=== PATIENT | female | born 1980 | race African-American/Black ===

== ENCOUNTER 2020-01-01 03:29 | Emergency (ER) | payer MEDICARE, OTHER ==
[~2020-01-01] VITALS: Ht 177.8 cm; Wt 146.1 kg
[2020-01-01 03:40] VITALS: BP 154/98
--- NOTE | 2020-01-01 03:40 | NUR ---
ED Nurse Note: Patient walked into ED for c/o anxiety. Patient states she was diagnosed with anxiety three years ago and used to take valium. She states it has become increasingly worse over the past year since the of her fiance. She is requesting to be evaluated. Denies wanting to harm herself or others. She denies any pain, SOB or other complaints besides the anxiety. Patient is aaox4, breathing is normal and unlabored.
[2020-01-01 04:09] LABS: APPEARANCE,URINE CLEAR; BILIRUBIN, URINE NEGATIVE (NEGATIVE); GLUCOSE, URINE (UA) NEGATIVE (NEGATIVE); KETONES,URINE NEGATIVE (NEGATIVE); LEUKOCYTE ESTERASE ,URINE 1+ (NEGATIVE); NITRITE,URINE NEGATIVE (NEGATIVE); PH,URINE 6 (4.5-8.0); PROTEIN,URINE 1+ (NEGATIVE); UROBILINOGEN,URINE NORMAL MG/DL (0.0-1.0)
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
[2020-01-01] MEDS ORDERED: LORazepam Inj 2mg/ml 1ml IM ONE (04:15)
[2020-01-01 04:16] LABS: COLOR,URINE YELLOW
[2020-01-01] MEDS ORDERED: CEPHALEXIN500 MG ORAL (04:28)
[2020-01-01 04:30] VITALS: BP 140/90
--- NOTE | 2020-01-01 04:30 | NUR ---
ER DISCHARGE NOTE: Patient is cleared to be discharged per ERMD, pt is aox4, on room air, with stable vital signs. pt was given dc and prescription instructions, pt was able to verbalize understanding, pt id band removed. pt is able to ambulate with steady gait. pt took all belongings.
== END 2020-01-01 04:30 | disposition home or self-care (01) ==
LOC: EMR 04:03
DX: F41.9 Anxiety disorder, unspecified (principal); F31.9 Bipolar disorder, unspecified; I10 Essential (primary) hypertension; F32.9 Major depressive disorder, single episode, unspecified; E66.9 Obesity, unspecified; Z88.6 Allergy status to analgesic agent
CPT/HCPCS: 71045; 81001; 81025; 93005; 96372; 99283